=== PATIENT | female | born 1955 | race African-American/Black ===

== ENCOUNTER 2017-11-28 08:19 | Observation (INO) | payer OTHER ==
[~2017-11-28 08:19] MED LIST: ATROPINE 1 MG/10 ML SYRINGE IV; CEFAZOLIN 1 GM INJ; CEFAZOLIN 2 GM/50 ML (PMX) 50 ML IVPB; DIPHENHYDRAMINE 50 MG INJ IV; EPHEDrine SULFATE 50 MG/5 ML SYG IV; FENTAnyl 50 MCG/ML VIAL IV; LABETALOL HCL 20MG INJ IV; MEPERIDINE 25 MG INJ IV; MIDAZOLAM 1 MG/ML 2 ML INJ IV; ONDANSETRON 4 MG INJ IV; SUCCINYLCHOLINE CHLORIDE 100 MG/5 ML SYG IV; hydrALAzine 20 MG INJ IV
[2017-11-28 09:38] LABS: ADD MAN DIFF? NO
[2017-11-28 09:50] LABS: BASOPHILS % 0.4 % (0.0-2.0); EOSINOPHILS # 0.3 10^3/ul (0.0-0.5); EOSINOPHILS % 3.9 % (0.0-7.0); HEMATOCRIT 35.8 % (37.0-47.0); HEMOGLOBIN 11.4 g/dl (12.0-16.0); LYMPHOCYTES # 2.7 10^3/ul (0.8-2.9); LYMPHOCYTES % 34.4 % (15.0-51.0); MEAN CORPUSCULAR HEMOGLOBIN 29.8 pg (29.0-33.0); MEAN CORPUSCULAR HGB CONC 31.8 g/dl (32.0-37.0); MEAN CORPUSCULAR VOLUME 93.7 fl (82.0-101.0); MEAN PLATELET VOLUME 10.1 fl (7.4-10.4); MONOCYTE # 0.5 10^3/ul (0.3-0.9); MONOCYTES % 6.6 % (0.0-11.0); NEUTROPHIL # 4.2 10^3/ul (1.6-7.5); NEUTROPHILS % 54.4 % (39.0-77.0); PLATELET COUNT 296 10^3/UL (140-415); RED BLOOD COUNT 3.82 10^6/ul (4.20-5.40); RED CELL DISTRIBUTION WIDTH 14.3 % (11.5-14.5)
[2017-11-28 09:50] LABS: WHITE BLOOD COUNT 7.8 10^3/ul (4.8-10.8)
[2017-11-28 10:19] LABS: INR 0.93; PROTIME 12.6 Sec (11.9-14.9)
[2017-11-28 10:20] LABS: PARTIAL THROMBOPLASTIN TIME 32.9 Sec (25.0-35.0)
[2017-11-28 10:26] LABS: ALANINE AMINOTRANSFERASE 24 IU/L (13-69); ALBUMIN 4.4 g/dl (3.3-4.9); ALBUMIN/GLOBULIN RATIO 0.97; ALKALINE PHOSPHATASE 97 IU/L (42-121); ANION GAP 14 (8-16); ASPARTATE AMINO TRANSFERASE 20 IU/L (15-46); CARBON DIOXIDE 29 mmol/L (21-31); CHLORIDE 106 mmol/L (97-110); GLUCOSE 122 mg/dl (70-220); TOTAL PROTEIN 8.9 g/dl (6.1-8.1)
[2017-11-28 10:29] LABS: BLOOD UREA NITROGEN 10 mg/dl (7-20); CALCIUM 9.4 mg/dl (8.4-10.2); CREATININE 1.16 mg/dl (0.44-1.00); POTASSIUM 4.3 mmol/L (3.5-5.1); SODIUM 145 mmol/L (135-144)
[2017-11-28] MEDS ORDERED: GLYCOPYRROLATE 0.4 MG INJ (12:39)
[2017-11-28] MEDS ORDERED: LIDOCAINE 2% (SDV) 5 ML INJ (12:39)
[2017-11-28] MEDS ORDERED: NEOSTIGMINE 3 MG/3 ML SYRINGE (12:39)
[2017-11-28] MEDS ORDERED: ROCURONIUM 50 MG INJ (12:39)
[2017-11-28] MEDS ORDERED: PROPOFOL 20 ML (12:39)
[2017-11-28] MEDS ORDERED: FENTAnyl 50 MCG/ML VIAL (12:39)
[2017-11-28] MEDS ORDERED: ONDANSETRON 4 MG INJ (12:40)
[2017-11-28] MEDS ORDERED: DEXAMETHASONE 4 MG/ML 1 ML INJ (12:40)
[2017-11-28] MEDS ORDERED: MIDAZOLAM 1 MG/ML 2 ML INJ (12:40)
[2017-11-28] MEDS ORDERED: hydrALAzine 20 MG INJ (13:57)
[2017-11-28] MEDS ORDERED: ALBUTEROL 0.5% (NEB) 2.5 MG/0.5 ML AMP (15:35)
[2017-11-28] MEDS: FENTAnyl 50 MCG/ML VIAL IV (15:44)
[2017-11-28] MEDS ORDERED: ALBUTEROL 0.083% (NEB) 2.5 MG/3 ML AMP (15:48)
[2017-11-28] MEDS: ALBUTEROL 0.083% (NEB) 2.5 MG/3 ML AMP HHN (15:58)
[2017-11-28] MEDS ORDERED: HYDROmorphONE 0.5 MG/0.5 ML SYG IV (16:30)
[2017-11-28] MEDS ORDERED: HYDROmorphONE 1 MG/ML SYG IV (16:30)
[2017-11-28] MEDS ORDERED: hydrALAzine 20 MG INJ IV (17:00)
[2017-11-28] MEDS ORDERED: HYDROCODONE/APAP (5/325) TAB PO (17:00)
[2017-11-28] MEDS ORDERED: ONDANSETRON 4 MG INJ IV (17:00)
[2017-11-28] MEDS ORDERED: ACETAMINOPHEN/CODEINE #3 TAB PO ×2 (17:00)
[2017-11-28] MEDS ORDERED: SPECIAL NON-STANDARD MEDICATION PO ×2 (17:00)
[2017-11-28] MEDS: SOD CHLORIDE 0.9% 1,000 ML IV ×2 (17:55→19:23)
[2017-11-28] MEDS: HYDROmorphONE 2 MG TAB PO (17:57)
[2017-11-28] MEDS: INSULIN ASPART [NOVOLOG] 3 ML PEN SC ×2 (18:00→20:34)
[2017-11-28] MEDS ORDERED: DEXTROSE 50% 50 ML SYRINGE IV ×2 (18:00)
[2017-11-28] MEDS ORDERED: GLUCOSE GEL 15 GRAM TUBE BUCCAL (18:00)
[2017-11-28] MEDS ORDERED: GLUCOSE GEL 15 GRAM TUBE PO ×2 (18:00)
[2017-11-28] MEDS ORDERED: GLUCAGON 1 MG INJ IM (18:00)
[2017-11-29] MEDS: ACCU-CHEK XX (02:12)
[2017-11-29 06:13] LABS: ADD MAN DIFF? NO
[2017-11-29 06:21] LABS: WHITE BLOOD COUNT 12.5 10^3/ul (4.8-10.8)
[2017-11-29 06:21] LABS: BASOPHILS % 0.2 % (0.0-2.0); HEMATOCRIT 32.8 % (37.0-47.0); HEMOGLOBIN 10.4 g/dl (12.0-16.0); LYMPHOCYTES # 1.8 10^3/ul (0.8-2.9); LYMPHOCYTES % 14.6 % (15.0-51.0); MEAN CORPUSCULAR HEMOGLOBIN 29.7 pg (29.0-33.0); MEAN CORPUSCULAR HGB CONC 31.7 g/dl (32.0-37.0); MEAN CORPUSCULAR VOLUME 93.7 fl (82.0-101.0); MEAN PLATELET VOLUME 10.3 fl (7.4-10.4); MONOCYTE # 0.6 10^3/ul (0.3-0.9); NEUTROPHIL # 9.9 10^3/ul (1.6-7.5); NEUTROPHILS % 79.7 % (39.0-77.0); PLATELET COUNT 292 10^3/UL (140-415); RED CELL DISTRIBUTION WIDTH 14.6 % (11.5-14.5)
[2017-11-29 06:39] LABS: ANION GAP 17 (8-16); BLOOD UREA NITROGEN 13 mg/dl (7-20); CALCIUM 9.1 mg/dl (8.4-10.2); CARBON DIOXIDE 26 mmol/L (21-31); CHLORIDE 104 mmol/L (97-110); CREATININE 1.07 mg/dl (0.44-1.00); GLUCOSE 133 mg/dl (70-220); POTASSIUM 4.1 mmol/L (3.5-5.1); SODIUM 143 mmol/L (135-144)
[2017-11-29] MEDS: INSULIN ASPART [NOVOLOG] 3 ML PEN SC ×2 (07:49→12:15)
[2017-11-29] MEDS ORDERED: NON-FORMULARY/PATIENT OWN MED (Lisinopril/Hydrochlorothiazide (Lisinopril-Hctz 20-12.5 mg PO (09:00)
== END 2017-11-29 14:40 | disposition home or self-care (01) ==
LOC: SDS 08:19 → MS2 16:09
DX: C50.911 Malignant neoplasm of unspecified site of right female breast (principal); Z17.0 Estrogen receptor positive status [ER+]; E11.9 Type 2 diabetes mellitus without complications; Z79.4 Long term (current) use of insulin; I10 Essential (primary) hypertension
CPT/HCPCS: 19301; 71045; 80048; 80053; 82962; 83036; 85025; 85610; 85730; 88307; 93005; 94664